=== PATIENT | female | born 1965 | race Caucasian/White ===

== ENCOUNTER 2024-08-02 08:50 | Outpatient (CLI) | payer OTHER, SELFPAY ==
--- NOTE | ~2024-08-02 | MM_ITS ---
EXAMINATION: MM screening aisha BI w guicho HISTORY: Screening TECHNIQUE: Craniocaudal and mediolateral oblique 3-D tomosynthesis images were obtained and synthetic 2-D images were generated. CAD analysis was submitted and interpreted. COMPARISON: No prior mammogram is available for comparison at this institution. BREAST PARENCHYMAL COMPOSITION: Not dense: There are scattered areas of fibroglandular density. FINDINGS: There is a focal asymmetry laterally in the right breast, middle third, best seen on CC vie w. There is no evidence for malignancy in the left breast. IMPRESSION: 1. Focal right breast asymmetry laterally. 2. Additional mammographic views and possible breast ultrasound are recommended. BI-RADS Category 0: Incomplete: Needs additional imaging evaluation. Reviewed, dictated and finalized at location B. [employer] IMPRESSION: 1. Focal right breast asymmetry laterally. 2. Additional mammographic views and possible breast ultrasound are recommended . BI-RADS Category 0: Incomplete: Needs additional imaging evaluation.
== END 2024-08-02 08:51 | disposition home or self-care (01) ==
PROVIDERS: PCP Hospitalist; Visit Provider Obstetrics & Gynecology
DX: R92.2 Inconclusive mammogram (principal)
CPT/HCPCS: 77063; 77067

== ENCOUNTER 2025-05-21 01:03 | Day surgery (SDC) | payer OTHER, SELFPAY ==
--- OUTSIDE RECORDS SUMMARY | 2025-05-21 01:06 | XMS_ITS | Encounter Summary ---
Author Organization [facility] Address [address] [facility] [place] [address] Phone Care Team Providers Care Distillery Supervisor Name Role Phone Shayan Shaikh MD Primary Care Provider [phone] Encounter Details Date Type Department Care Team (Late st Contact Info) Description 06/23/2022 [facility] [address] [place] [address] Mary Jane Wells [place] [address] [place] [address] Social History Tobacco Use Types Packs/Day Years Used Date Smoking Tobacco: Never Assessed Comments No Sex and Gender Information Value Date Recorded Sex Assigned at Not on file Legal Sex Female 12:15 AM CDT Gender Identity Not on file Sexual Orientation Not on file COVID-19 Exposure Response Date Recorded In the last 10 days, have yo u been in contact with someone who was confirmed or suspected to have Coronavirus/COVID-19? No / Unsure 06/14/2022 3:27 PM [employer]INEER documented as of this encounter Plan of Treatment Not on file documented as of this encounter Visit Diagnoses Not on filedocumented in this encounter Care Teams Distillery Supervisor Relationship Specialty Start Date End Date Shayan Shaikh MD PCP - General Internal Medicine 06/27/15 documented as of this encounter
--- OUTSIDE RECORDS SUMMARY | 2025-05-21 01:06 | XMS_ITS | Clinical Summary ---
Author Organization [facility] Address [address] [place] [address] Care Team Providers Care Rope Twisting Machine Operator Name Role Phone Reanna Schmitz MD Unavailable [phone] Reagan Thurston MD Primary Care Provider [phone] Allergies Active Allergy Reactions Criticality Noted Date Comments Codeine Nausea only Low Meperidine Flushing (skin) Low Medications cholecalciferol (VITAMIN D-3) 2,000 unit tablet Take 1 tablet (2,000 Units total) by mouth daily. 03/15/20 17 Active mv-min/folic/vi t K/lycop/coQ10 (DAILY MULTIVITAMIN ORAL) Take by mouth Active Lactobac no.41/Bifidobac t no.7 (PROBIOTIC-10 ORAL) Take by mouth Active cranberry 400 mg capsule Take by mouth Activ e albuterol HFA (ProAir HFA) 90 mcg/actuation inhaler Inhale 2 puffs every 6 (six) hours as needed for wheezing 18 g 11 08/02/19 23 Active azelastine (ASTELIN) 137 mcg (0.1 %) nasal spray Administer 1 spray into each nostril 2 (two) times a day Use in each nostril as directed 30 mL 3 09/19/19 25 Active lansoprazole (PREVACID) 30 mg capsule TAKE 1 CAPSULE BY MOUTH EVERY DAY BEFORE BREAKFAST 90 capsule 3 11/13/19 25 Active montelukast (SINGULAIR) 10 mg tablet TAKE 1 TABLET BY MOUTH AT NIGHT 90 tablet 3 02/08/20 25 Active levothyroxine (SYNTHROID) 50 mcg tablet TAKE 1 TABLET( 50 MCG TOTAL) BY MOUTH DAILY 90 tablet 3 02/08/20 25 Active lisinopriL (PRINIVIL,ZESTR [place]) 20 mg tablet TAKE 1 TABLET(20 MG) BY MOUTH DAILY 90 tablet 3 05/06/20 25 Active clobetasoL (TEMOVATE) 0.05 % creamIndication s:Insect bite of right upper arm, initial encounter Apply topically 2 (two) times a day 30 g 2 05/10/20 25 Active clobetasoL (TEMOVATE) 0.05 % gel Apply 1 application topically 2 (two) times a day 30 each 3 08/21/19 20 2024 Discontinued(T herapy completed) lisinopriL (PRINIVIL,ZESTR IL) 20 mg tablet Take 1 tablet (20 mg total) by mouth daily 90 tablet 3 05/23/20 24 2024 Discontinued Active Problems Problem Noted Date Diagnosed Date Trigger thumb of left hand 05/04/2024 Dyslipidemia 04/09/2024 Assessment & Plan (04/09/2024 4:43 PM CDT): Elevated total and LDL cholesterol, ASCVD risk is 3.9% Patient expects to begin exercise program on Tuesday Muscle strain 12/05/2021 Assessment & Plan (12/05/2021 9:54 PM CDT): This most likely represents a muscular strain in her upper abdomen. No signs of hernia on examination today. Rest ice and avoid aggravating activities. Anti-inflammatories as needed. Call back if symptoms worsen. History of colon polyps 05/02/2020 Overview (05/02/2020): Added automatically from request for surgery [id number] Anxiety disorder 12/09/2019 Assessment & Plan (09/06/2023 4:04 PM CERTIFIED NURSING ASSISTANT): Stable, well controlled; mostly related to loss of parents; resolving for patient Assessment & Plan (12/09/2019 8:04 PM CDT): Start sertraline 50 mg half tablet daily for 6 days then full tablet daily thereafter. Increase exercise and work on stress reduction techniques. Consider counseling. Call back if she develops any suicidal homicidal ideations. Call back if symptoms do not improve so we can increase the dose. Allergic rhinitis 03/15/2017 Assessment & Plan (09/19/2024 12:40 PM CERTIFIED NURSING ASSISTANT): Currently well controlled; patient plans to restart medications as starting in increased pollen count Continue Singulair 10 mg daily, 2nd generation antihistamine, azelastine nasal spray Assessment & Plan (04/09/2024 4:43 PM CDT): Not well controlled, has been having worsening sinus symptoms, some relief with treatments but continues to have thick mucus and watery eyes; symptoms are worse at night Encouraged continued use of Astelin nasal spray, may combine with Flonase in mornings; continue Singulair 10 mg daily Assessment & Plan (05/25/2021 4:24 PM CDT): Add azelastine to her Zyrtec. Assessment & Plan (06/02/2019 7:20 AM CERTIFIED NURSING ASSISTANT): Continue Singulair. Add Flonase as needed Assessment & Plan (03/16/2018 3:36 PM CDT): Continue Singulair daily. Try Flonase if needed. Assessment & Plan (01/26/2018 2:11 PM CDT): Stable. Continue Singulair daily Zyrtec use as needed I did recommend that she might benefit from an more at this time. We did discuss Flonase she has no desire to try a nasal spray at this time but certainly to keep in mind if any postnasal drainage is contributing at all to her with bronchospastic cough Tinea pedis 03/15/2017 Vasomotor symptoms due to menopause 03/15/2017 Assessment & Plan (03/16/2018 3:36 PM CDT): Continue hormone replacement as directed by telecine operator and she is aware the risks this poses to her health. Assessment & Plan (03/15/2017 2:53 PM CDT): Continue hormone replacement therapy as directed by her telecine operator and she is aware the risks this poses to her health. Healthcare maintenance 03/15/2017 Assessment & Plan (06/21/2022 5:26 AM CERTIFIED NURSING ASSISTANT): Flu shot each April. Tetanus booster every 10 years. COVID booster recommended. Shingrix completed. Mammogram yearly. Colonoscopy due April 2025. Will see her back in 1 year for physical fasting lab sooner if needed Assessment & Plan (05/25/2021 4:25 PM CDT): Flu shot each April. Tetanus booster every 10 years. Moderna booster recommended. Shingrix completed. Mammogram yearly. Colonoscopy due April 2025. Follow-up the telecine operator for breast exam and pelvic exam as they direct. will see her back in 1 year for physical fasting lab sooner if needed. Assessment & Plan (05/22/2020 4:21 PM CDT): Flu shot each April. Tetanus booster every 10 years. Shingrix completed. Mammogram yearly. Follow-up the telecine operator for breast exam and pelvic exam as they direct. We will see her back in 1 year for physical fasting lab sooner if needed. Assessment & Plan (06/02/2019 7:22 AM CERTIFIED NURSING ASSISTANT): Flu shot each April. Tetanus booster every 10 years. Shingrix completed. Colonoscopy due January 2020. Mammogram yearly. Follow-up the telecine operator for breast exam and pelvic exam as they direct. We will see her back in 1 year for physical and fasting lab sooner if needed. Assessment & Plan (03/16/2018 3:37 PM CDT): Flu shot each April. Tetanus booster every 10 years. Shingrix recommended. Colonoscopy due January 2020 per Gastroenterology recommendations. Mammogram yearly. Follow-up the telecine operator for breast exam and Pap smear is a direct. We will see her back in 1 year for physical and fasting lab sooner if needed Assessment & Plan (03/15/2017 2:56 PM CDT): Flu shot each April. Tetanus booster every 10 years. Prevnar at age 66 followed by a 2nd found Pneumovax 1 year later. Follow-up telecine operator for pelvic exam is a direct. Colonoscopy January 2017 showed hyperplastic polyps and would think 10 year follow-up but report shows 3 year follow-up. She should follow with Dr. Leyva for clarification. Mammogram due July 25, 2017. Normal bone density scan January 2017. Hypertension 02/27/2015 Overview (10/28/2016): HTN Assessment & Plan (09/19/2024 12:40 PM CERTIFIED NURSING ASSISTANT): Stable, well controlled, blood pressure goal; no chest pain or pressure Continue lisinopril 20 mg daily Assessment & Plan (04/09/2024 4:42 PM CDT): Stable, well controlled; patient reports blood pressure at goal Continue lisinopril 10 mg daily Assessment & Plan (09/06/2023 4:04 PM CERTIFIED NURSING ASSISTANT): Stable, well controlled; blood pressure at goal; will continue to monitor as mother developed atrial fibrillation Continue lisinopril 10 mg daily Assessment & Plan (06/21/2022 5:26 AM CERTIFIED NURSING ASSISTANT): Well controlled on the current regimen. Avoidance of salt, proper body weight, and routine exercise recommended. Assessment & Plan (05/25/2021 4:23 PM CDT): Well controlled on the current regimen. Avoidance of salt, proper body weight, and routine exercise recommended. Assessment & Plan (05/22/2020 4:19 PM CDT): Well controlled on the current regimen. Avoidance of salt, proper body weight, and routine exercise recommended. Assessment & Plan (06/02/2019 7:18 AM CERTIFIED NURSING ASSISTANT): Well controlled on the current regimen. Avoidance of salt, proper body weight, and routine exercise recommended. Assessment & Plan (03/16/2018 3:35 PM CDT): Well controlled on the current regimen. Avoidance of salt, proper body weight, and routine exercise recommended. Assessment & Plan (03/15/2017 2:52 PM CDT): Well controlled on the current regimen. Avoidance of salt, proper body weight, and routine exercise recommended. Hypothyroidism 12/08/2013 Overview (10/27/2016): HYPOTHYROIDISM NOS Assessment & Plan (09/19/2024 12:39 PM CERTIFIED NURSING ASSISTANT): Stable, well controlled, TSH at goal Continue levothyroxine 50 mcg daily Assessment & Plan (04/09/2024 4:42 PM CDT): Stable, less well controlled; last TSH within normal limits Continue levothyroxine 50 mcg daily Assessment & Plan (09/06/2023 4:03 PM CERTIFIED NURSING ASSISTANT): Stable, well controlled; TSH at goal; no major changes to energy or weight Continue levothyroxine 50 mcg daily Assessment & Plan (06/21/2022 5:25 AM CERTIFIED NURSING ASSISTANT): Patient is asymptomatic on current dose of levothyroxine and TSH free T4 are normal and we will repeat levels before next visit. Assessment & Plan (05/25/2021 4:23 PM CDT): Patient is asymptomatic on current dose of levothyroxine and TSH free T4 are normal and we will repeat levels before next visit. Assessment & Plan (05/22/2020 4:19 PM CDT): Patient is asymptomatic on current dose of levothyroxine and TSH free T4 are normal and we will repeat levels before next visit. Assessment & Plan (06/02/2019 7:18 AM CERTIFIED NURSING ASSISTANT): Patient is asymptomatic on current dose of levothyroxine and TSH free T4 are normal and we will repeat levels before next visit. Assessment & Plan (03/16/2018 3:35 PM CDT): Patient is asymptomatic on current dose of levothyroxine and TSH free T4 are normal and we will repeat levels before next visit. Assessment & Plan (03/15/2017 2:52 PM CDT): Patient is asymptomatic on current dose of levothyroxine and TSH free T4 are normal and we will repeat levels before next visit. Gastroesophageal reflux disease 12/08/2013 Overview (10/27/2016): ESOPHAGEAL REFLUX Assessment & Plan (09/19/2024 12:39 PM CERTIFIED NURSING ASSISTANT): Stable, well controlled, no major symptoms Continue Prevacid 30 mg daily Assessment & Plan (04/09/2024 4:42 PM CDT): Stable well controlled with current medications, no significant symptoms Continue Prevacid 30 mg daily Assessment & Plan (09/06/2023 4:03 PM CERTIFIED NURSING ASSISTANT): Stable, well controlled, symptoms okay, some worsening with increased weight Limits high acid foods Encouraged continued dietary changes; famotidine p.r.n. Assessment & Plan (06/21/2022 5:26 AM CERTIFIED NURSING ASSISTANT): Well controlled on her lansoprazole Assessment & Plan (05/25/2021 4:23 PM CDT): Well controlled on lansoprazole. Assessment & Plan (05/22/2020 4:19 PM CDT): Continue current PPI and the patient is aware of the long-term risks posed by chronic PPI usage. Calcium supplementation recommended. Assessment & Plan (06/02/2019 7:18 AM CERTIFIED NURSING ASSISTANT): Continue current PPI and the patient is aware of the long-term risks posed by chronic PPI usage. Magnesium level will be checked periodically. Calcium supplementation recommended. Assessment & Plan (03/16/2018 3:35 PM CDT): Continue current PPI and the patient is aware of the long-term risks posed by chronic PPI usage. Magnesium level will be checked periodically. Calcium supplementation recommended. Assessment & Plan (03/15/2017 2:52 PM CDT): Continue current PPI and the patient is aware of the long-term risks posed by chronic PPI usage. Magnesium level will be checked periodically. Calcium supplementation recommended. Asthma 12/08/2013 Overview (10/29/2016): ASTHMA NOS Assessment & Plan (04/09/2024 4:43 PM CDT): Stable, well controlled; no major symptoms, rare use of rescue inhaler Symptoms are worsened fallen winter Continue Breo Ellipta 1 puff daily; albuterol p.r.n. Assessment & Plan (09/06/2023 4:04 PM CERTIFIED NURSING ASSISTANT): Well controlled with current medications, rare use of rescue inhaler; uses Breo Ellipta p.r.n. for rescue, Singulair daily Continue Breo Ellipta 1 puff p.r.n.; Singulair 10 mg nightly Assessment & Plan (06/21/2022 5:26 AM CERTIFIED NURSING ASSISTANT): Well controlled on her Breo. Albuterol as needed. Assessment & Plan (05/25/2021 4:23 PM CDT): Well controlled on Breo. Use albuterol p.r.n. Assessment & Plan (05/22/2020 4:20 PM CDT): Well controlled with Breo and use albuterol p.r.n. Assessment & Plan (06/02/2019 7:19 AM CERTIFIED NURSING ASSISTANT): Restart Breo as needed and use albuterol as needed. Assessment & Plan (03/16/2018 3:36 PM CDT): Call back if she has any problems switching over Breo. If symptoms remain well controlled, can wean off of this and use albuterol only as needed. Assessment & Plan (01/26/2018 2:11 PM CDT): Refilled Alvesco inhaler to use 1 puff b.i.d. rinsing and spitting after each use this is previously worked for her in the past and she is wanting to go back on to the previous corticosteroid for preventative maintenance at this time. Continue use of ProAir p.r.n. and Singulair as previously prescribed follow-up in a month as scheduled Dr. Shaikh, and certainly sooner if indicated Assessment & Plan (03/15/2017 2:55 PM CDT): Well controlled with generic Singulair and albuterol p.r.n. only. Vitamin D deficiency 12/08/2013 Overview (10/29/2016): Vitamin D deficiency Assessment & Plan (06/21/2022 5:25 AM CERTIFIED NURSING ASSISTANT): Continue current supplementation and check level in 1 year. Assessment & Plan (05/25/2021 4:23 PM CDT): Continue current supplementation and check level in 1 year. Assessment & Plan (05/22/2020 4:20 PM CDT): Continue current supplementation and check level in 1 year. Assessment & Plan (06/02/2019 7:18 AM CERTIFIED NURSING ASSISTANT): Continue current supplementation and check level in 1 year. Assessment & Plan (03/16/2018 3:36 PM CDT): Continue current supplementation and check level in 1 year. Assessment & Plan (03/15/2017 2:52 PM CDT): Reduce supplementation to 2000 units daily and check level before next visit. Eczema 12/04/2012 Overview (10/28/2016): Eczema Resolved Problems Problem Noted Date Diagnosed Date Resolved Date Chronic rhinitis 12/08/2013 03/15/2017 Overview (10/28/2016): CHRONIC RHINITIS Encounters Date Type Department Care Team Description 05/10/2025 3:30 PM CDT Office Visit [facility] [place] [address] [place] [address] Cat Pratt, VALERIO Insect bite of right upper arm, initial encounter (Primary Dx) 05/09/2025 Nurse Triage [facility] [address] [address] Reagan Thurston MD from Last 3 Months Immunizations Immunization Administration Dates Next Due Influenza, Quadrivalent, Spl it, Intramuscular 04/25/2016 Influenza, Quadrivalent, Spl it, Preservative Free, Intramuscular 04/19/2023,04/23/2022,05/01/2021,04/21,05/17/2019,05/01/2018,05/01/2017 Influenza, Trivalent, IM (MDV) 4,04/24/2013,04/14/2012,03/25 Influenza, Trivalent, Preser vative Free, Intramuscular 04/18/2024 Influenza, Trivalent, Split, Preservative Free, Intradermal 04/26/2015 Influenza, Unspecified 05/17/2019(Deferred: Otilia ent Refused) Moderna SARS-CoV-2 Monovalen t Vaccination (12+ YRS) 05/29/2021 Pneumococcal Conjugate PCV 13 04/12/2018 Pneumococcal Polysaccharide PPV23 04/30/2013 Td, adsorbed 11/23/2007 Tdap 05/17/2019 ZOSTER Recombinant 12/22/2018,10/04/2018 Surgical History Surgery Date Site/Laterality Comments CHOLECYSTECTOMY 07/25/2002 - 07/24/2003 LASIK 07/25/1999 - 07/24/2000 CERVICAL BIOPSY W/ LOOP ELECTRODE EXCISION 07/25/2003 - 07/24/2004 cervical dysplasia GUM SURGERY 07/25/2011 - 07/24/2012 gum tissue graft ENDOMETRIAL ABLATION W/ NOVASURE 07/25/2011 - 07/24/2012 LAPAROSCOPIC SALPINGOOPHERECTOMY 07/25/2012 - 07/24/2013 Right ovarian teratoma/mucinous cystadenoma SINUS SURGERY 07/25/2003 - 07/24/2004 TRIGGER FINGER RELEASE 07/25/2013 - 07/24/2014 Right COLONOSCOPY last screening 2017, high risk colon cancer TRIGGER FINGER RELEASE 07/25/2023 - 07/24/2024 Left Medical History Medical History Date Comments Eczema Hypothyroidism Seasonal allergies Asthma Abnormal Pap smear of cervix 2003 cer vical dysplasia GERD (gastroesophageal reflux disease) Prehypertension Arthritis 2007 Trigger thumb left Family History Medical History Relation Name Comments Asthma Brother Angel Breast cancer Cousin 1 2 maternal cou sins Stomach cancer Cousin 2 Arthritis Father Kimo Cancer Father Kimo Coronary artery disease Father Kimo Diabetes Father Kimo Diabetes type II Father Kimo Hypertension Father Kimo Hypertension Maternal Grandfather Alloys Hypertension Maternal Grandmother Sophie Osteoporosis Maternal Grandmother Sophie Anemia Mother July Arthritis Mother July Asthma Mother July Atrial fibrillation Mother July Cancer Mother July Hypertension Mother July Rashes / Skin problems Mother July Pancreatic cancer Mother's Brother COD Osteoporosis Other MGA Hypertension Paternal Grandfather Yrn Hypertension Paternal Grandmother Mallory Asthma Sister [place] Relation Name Status Comments Brother Angel Cousin 1 Cousin 2 Father Kimo Maternal Grandfather Alloys Maternal Grandmother Sophie Mother July Mother's Brother Other Paternal Grandfather Yrn Paternal Grandmother Mallory Sister [place] Social History Tobacco Use Types Packs/Day Years Used Date Smoking Tobacco: Never Smokeless Tobacco: Never Tobacco Cessation:Counseling Given: Not Answered Alcohol Use Standard Drinks/Week Comments Yes 0 (1 standard drink = 0.6 oz pur e alcohol) Less than 1 per month AUDIT-C Answer Date Recorded Frequency of Alcohol Consumption Not on file 05/14/2024 Q2: How many drinks containi ng alcohol do you have on a typical day when you are drinking? Patient does not drink Frequency of Binge Drinking Not on file 04/25 PHQ-2 Answer Date Recorded PHQ-2 Total Score (If total score is 3 or more points, staff should administer the PHQ-9) 0 09/19/2024 Personal Safety Answer Date Recorded Have you ever been in or are you currently in a harmful physical or emotional relationship or is someone making you feel afraid or unsafe? Denies 05/21/2024 Comments No Sex and Gender Information Value Date Recorded Sex Assigned at Not on file Legal Sex Female 7:09 PM CERTIFIED NURSING ASSISTANT Gender Identity Female 04/17/2019 6:24 AM CDT Sexual Orientation Straight 04/17/2019 6: 24 AM CDT Occupation Industry Job Start Date Job End Date Retired Not on file Not on file Not on file Obstetrics History Para Term AB IAB SAB Ectopic Multiple Livin g Live Births 0 0 0 0 0 0 0 0 0 0 0 Last Filed Vital Signs Vital Sign Reading Time Taken Comments Blood Pressure 134/74 05/10/2025 3:28 PM CDT Pulse 72 05/10/2025 3:28 PM CDT Temperature 36.2 C (97.2 F) 05/10/2025 3:28 PM CDT Respiratory Rate 16 05/10/2025 3:28 PM CDT Oxygen Saturation 99% 05/10/2025 3:28 PM CDT Inhaled Oxygen Concentration - - Weight 81.6 kg (180 lb) 05/10/2025 3:28 PM CDT Height 160 cm (5' 3) 05/10/2025 3:28 PM CDT Body Mass Index 31.89 05/10/2025 3:28 PM CDT Plan of Treatment Health Maintenance Due Date Last Done Comments Hepatitis C Screening 1965 Hepatitis B Screening 1984 Pneumococcal vaccine <65 (3 of 3 - PCV20 or PCV21) 04/12/2023 04/12/2018, 04/30/2013 Influenza Vaccine (#1) 2025 , 04/19/2023, 04/23/2022, Additional history exists Colon Cancer Screening-Colonoscopy 05/12/2025 05/12/2020, 02/07/2017, 02/07/2017 Cervical Cancer Screening 05/23/20252023, 05/23/2024, 04/22/2021, Additional history exists Regular Well Visit/Exam 18-64 05/23/2025, 04/29/2023, 05/27/2022, Additional history exists Breast Cancer Screening-Mammogram 08/29/2025 08/29/2024, 06/14/2022, 06/14/2022, Additional history exists Osteoporosis Screening-Bone Density Scan 09/06/2025 09/06/2023, 02/04/2017, 02/04/2017 Depression Screening 09/19/2025 09/19/2024, 09/01/2023, 05/27/2022, Additional history exists DTaP/Tdap/Td Vaccine (2 - Td or Tdap) 05/17/2029 05/17/2019, 11/23/2007 Zoster Vaccine Completed 12/22/2018, 10/04/2018 Colon Cancer Screening-CT Colonography Discontinued 05/12/2020, 02/07/2017, 02/07/2017 Colon Cancer Screening-DNA Stool Discontinued 05/12/2020, 02/07/2017, 02/07/2017 Colon Cancer Screening-FIT Discontinued 05/12, 02/07/2017, 02/07/2017 Colon Cancer Screening-Sigmoidoscopy Discontinued 05/12/2020, 02/07/2017, 02/07/2017 Covid-19 Vaccine Completed 03/30/2024, , 04/09/2022, Additional history exists Procedures Procedure Name Priority Date/Time Associated Diagnosis Comments SCREENING MAMMOGRAM Schedule Routine, Read Routine (OP Routine) 08/29/2024 7:51 AM CERTIFIED NURSING ASSISTANT HIGH RISK HPV DNA DETECTION WITH GENOTYPING Routine 05/23/2024 9:24 AM CDT Screening for malignant neoplasm of the cervix DEXA AXIAL SKELETON BONE DENSITY 1 OR MORE SITES Schedule Routine, Read Routine (OP Routine) 09/06/2023 Post-menopausal COLONOSCOPY 05/12/2020 11:12 AM CDT from Last 3 Months or Most Recently Relevant to Health Maintenance Results * Screening Mammogram (08/29/2024 7:51 AM CERTIFIED NURSING ASSISTANT) Anatomical Region Laterality Modality Breast N/A Mammography us Historical Provider MD MCDANIELS MAMMO PROCEDURES Joanna l Result * High Risk HPV DNA Detection with Genotyping (Molecular component) (05/23/2024 9:24 AM CDT) HPV HR 16 Not Detected Not Detected BJ Comment:Testing performed by : [facility], [address] [place] [address] HPV HR 18 Not Detected Not Detected BORIS JACOBS Comment:Testing performed by : [facility], [address] [place]., [address] HPV HR Non 16/18 Not Detected Not Detected BORIS Comment: Interpretive Data Nucleic acid amplification for detection of high-risk Human Papilloma virus (HPV) is performed by the [employer] 6800 HPV test. This assay specifically detects HPV-16 and HPV-18 genotypes. The following HPV genotypes are detected as high-risk HPV: HPV-31, 33, 35, ,39, 45, 51, 52, 56, 58, 59, 66, and 68. This assay has been approved by the [place] Food and Drug Administration for detection of HPV in cervical specimens collected by a physician using an endocervical brush/spatula or cervical broom and placed in the ThinPrep Pap Test PreservCyt collection containers. The performance characteristics of this test have been verified by the [facility] laboratory. Correlate with separately reported cytology results, as applicable. Interpretive data last revised 23 Testing performed by: [facility], [address] [place] [address]., [id number] Endocervical 05/23/2024 9:24 AM CDT 05/24/2024 12:45 PM CDT Narrative BORIS - 05/24/2024 8:02 PM CDT Clinical history and diagnosis->DX Z12.4 Testing type->Screening Last menstrual period (date if known)->N/A Menstrual status->Postmenopausal Previous negative PAP?->Yes Mary Jane Wells MD LAB BODY FLUIDS AND S TOOLS ORDERABLES Final Result BORIS [id number] Department [place] [address] [facility] * Dexa Axial Skeleton Bone Density 1 or 2 Site (09/06/2023) Anatomical Region Laterality Modality Body N/A Radiographic Heather ging Reagan Thurston MD IMG DXA PROCEDURES Final Result * COLONOSCOPY (05/12/2020 11:12 AM CDT) Anatomical Region Laterality Modality Other Narrative Procedure Note Olagbekaylyn, Olayiwola C., MD - 05/12/2020 11:12 AM CDT [facility] Patient Name: Hope Acuna Procedure Date: 05/12/2020 11:12AM Date of : 1965 Admit Type: Outpatient Age: 54 Gender: Female Note Status: Finalized Attending MD: Reinier Tomas M.D. Procedure Date: 05/12/2020 Procedure: Colonoscopy Indications: High risk colon cancer surveillance: Personalhistory of colonic polyps, Last colonoscopy 3 years ago Providers: Reinier Tomas M.D., Kala Babb CRNA (Anesthesia Staff), Sury Cannon RN Referring MD: Shayan Shaikh M.D. Medicines: Monitored Anesthesia Care Complications: No immediate complications. Estimated Blood Loss: Estimated blood loss: none. Procedure: Pre-Anesthesia Assessment: - Prior to the procedure, a History and Physical was performed, and patient medications and allergieswere reviewed. The patient is competent. The risks and benefits of the procedure and the sedation optionsand risks were discussed with the patient. All questions were answered and informed consent was obtained. Patient identification and proposed procedure were verified by the physician, the nurse and the janitorial tech in the procedure room. Mental Status Examination: alert and oriented. Airway Examination: normal oropharyngeal airway and neck mobility. Respiratory Examination: clear to auscultation. CV Examination: normal. Prophylactic Antibiotics: The patient does not require prophylactic antibiotics. Prior Anticoagulants: The patient has taken noprevious anticoagulant or antiplatelet agents. ASA Grade Assessment: II - A patient with mild systemicdisease. After reviewing the risks and benefits, the patientwas deemed in satisfactory condition to undergo the procedure. The anesthesia plan was to use monitored anesthesia care (MAC). Immediately prior to administration of medications, the patient was re-assessed for adequacy to receive sedatives. The heart rate, respiratory rate, oxygen saturations,blood pressure, adequacy of pulmonary ventilation, and response to care were monitored throughout the procedure. The physical status of the patient was re-assessed after the procedure. - The risks and benefits of the procedure and the sedation options and risks were discussed with the patient. All questions were answered and informed consent was obtained. After I obtained informed consent, the scope waspassed under direct vision. Throughout the procedure, the patient's blood pressure, pulse, and oxygensaturations were monitored continuously. The scope was passedunder direct vision. The Colonoscope was introducedthrough the anus and advanced to the the cecum, identifiedby appendiceal orifice and ileocecal valve. The colonoscopy was performed without difficulty. The patient tolerated the procedure well. The quality of the bowel preparation was adequate. Bowel prep was administered using a split dose. The bowelpreparation used was SUPREP. Bowel prep was administered using a split dose. Findings: Multiple small-mouthed diverticula were found in the entire colon. The exam was otherwise without abnormality on direct and retroflexion views. Impression: - Diverticulosis in the entire examined colon. - The examination was otherwise normal on direct and retroflexion views. - No specimens collected. - Colonic polyps were not seen. Recommendation: - High fiber diet. - Repeat colonoscopy in 5 years for surveillance. Procedure Code(s): --- Professional --- 79725, Colonoscopy, flexible; diagnostic, including collection of specimen(s) by brushing or washing,when performed (separate procedure) Diagnosis Code(s): --- Professional --- Z86.010, Personal history of colonic polyps K57.30, Diverticulosis of large intestine without perforation or abscess without bleeding CPT copyright 2017 [employer]. All rights reserved. The codes documented in this report are preliminary and upon guest relations agent reviewmay be revised to meet current compliance requirements. Electronically signed by Reinier Tomas M.D. Reinier Tomas M.D. 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
--- OUTSIDE RECORDS SUMMARY | 2025-05-21 01:06 | XMS_ITS | Clinical Summary ---
Author Organization [facility] [address] [facility] [place] [address] Phone Care Team Providers Care Brusher Warp Name Role Phone Shayan Shaikh MD Primary Care Provider [phone] Family History Medical History Relation Name Comments Breast Cancer Other Relation Name Status Comments Other Social History Tobacco Use Types Packs/Day Years Used Date Smoking Tobacco: Never Assessed Comments No Sex and Gender Information Value Date Recorded Sex Assigned at Not on file Legal Sex Female 12:15 AM CDT Gender Identity Not on file Sexual Orientation Not on file Last Filed Vital Signs Vital Sign Reading Time Taken Comments Blood Pressure - - Pulse - - Temperature - - Respiratory Rate - - Oxygen Saturation - - Inhaled Oxygen Concentration - - Weight 80.7 kg (178 lb) 07/12/2015 8:07 AM WATER HAULER Height 162.6 cm (5' 4) 07/12/2015 8:07 AM WATER HAULER Body Mass Index 30.55 07/12/2015 8:07 AM WATER HAULER Plan of Treatment Health Maintenance Due Date Last Done Comments Hepatitis C Virus (HCV) Screening 1966 Hepatitis B Immunization (1 of 3 - 19+ 3-dose series) 1985 Pap Smear 1987 Cervical Cancer Screening (CCS) 1996 HPV/Cotest 1996 Cologuard 2011 Immunochemical Fecal Occult Blood 2011 Pneumococcal Immunization (50+ years) (3 of 3 - PCV20 or PCV21) 04/12/2023 04/12/2018, 04/30/2013 Influenza Immunization (#1) 03/25/202503/27, 05/01/2021, 04/21/2020, Additional history exists SARS-COV-2 Immunization ( season) 2025 04/09/2022, 10/25/2021, 05/29/2021, Additional history exists Colonoscopy 05/12/2030 05/12/2020 Colorectal Cancer Screening 05/12/2030 Respiratory Syncytial Virus (RSV) Immunization (Adult) (1 - 1-dose 75+ series) 2041 Pneumococcal Immunization Combined Discontinued 04/12/2018, 04/30/2013 Zoster Immunization Completed 12/22/2018, 9 DTaP/Tdap/Td Immunization Discontinued 05/17/2019, 07/2007 TdaP Immunization Completed 05/17/2019 Mammogram Discontinued 06/14/2022, 04/25, 05/10/2020, Additional history exists Human Papillomavirus (HPV) Immunization Aged Out No longer eligible based on patient's age to complete this topic Meningococcal Immunization (ACWY) Aged Out No longer eligible based on patient's age to complete this topic Rotavirus Immunization Aged Out No lo nger eligible based on patient's age to complete this topic Procedures Procedure Name Priority Date/Time Associated Diagnosis Comments CHICHO SCREENING BILATERAL DIGITAL W CAD W HENNY Routine 06/14/2022 4:05 PM WATER HAULER Encounter for screening mammogram for malignant neoplasm of breast from Last 3 Months or Most Recently Relevant to Health Maintenance Results * CHICHO SCREENING BILATERAL DIGITAL W CAD W HENNY (06/14/2022 4:05 PM WATER HAULER) Anatomical Region Laterality Modality breast Bilateral Mammography 06/14/2022 3:46 PM WATER HAULER Narrative 06/15/2022 11:10 AM WATER HAULER - CHICHO SCREENING BILATERAL DIGITAL W CAD W HENNY BILATERAL DIGITAL SCREENING MAMMOGRAM 3D/2D WITH CAD WITH MEDIOLATERAL OBLIQUE CRANIOCAUDAL: 06/14/2022 The study was acquired using digital technology and interpreted from soft copy. Current study was also evaluated with ICAD version 7.2. 2D digital mammographic views, as well as 3D digital tomosynthesis were performed in the CC and MLO projections. CLINICAL: Routine screening. Patient has no complaints. No personal history of cancer. Maternal cousin had breast cancer. COMPARISONS: Comparison is made to exams dated: 05/16/2021, 05/30/2020, 05/10/2020, and 04/28/2019 [facility]. BREAST TISSUE:The tissue of both breasts is heterogeneously dense. This may lower the sensitivity of mammography. FINDINGS: There is an asymmetry in the right breast anterior depth central to the nipple seen on the mediolateral oblique view only. No other significant masses, calcifications, or other findings are seen in either breast. IMPRESSION: BI-RAD 0 ADDITIONAL IMAGING EVALUATION NEEDED The asymmetry in the right breast is indeterminate. Additional views with possible ultrasound are recommended. An immediate follow-up is recommended. A letter will be sent to the patient with these results. Electronically signed by: Niki wilson/katelynn:06/14/2022 17:17:09 Character Actor(s): RT Lexy(R)(M), [facility] letter sent: Additional Imaging Reading location: [facility] BI-RADS: 0 Additional Imaging Evaluation Needed Procedure Note Niki Marquez MD - 06/15/2022 - CHICHO SCREENING BILATERAL DIGITAL W CAD W HENNY BILATERAL DIGITAL SCREENING MAMMOGRAM 3D/2D WITH CAD WITH MEDIOLATERAL OBLIQUE CRANIOCAUDAL: 06/14/2022 The study was acquired using digital technology and interpreted from soft copy. Current study was also evaluated with ICAD version 7.2. 2D digital mammographic views, as well as 3D digital tomosynthesis were performed in the CC and MLO projections. CLINICAL: Routine screening. Patient has no complaints. No personal history of cancer. Maternal cousin had breast cancer. COMPARISONS: Comparison is made to exams dated: 05/16/2021, 05/30/2020, 05/10/2020, and 04/28/2019 [facility]. BREAST TISSUE:The tissue of both breasts is heterogeneously dense. This may lower the sensitivity of mammography. FINDINGS: There is an asymmetry in the right breast anterior depth central to the nipple seen on the mediolateral oblique view only. No other significant masses, calcifications, or other findings are seen in either breast. IMPRESSION: BI-RAD 0 ADDITIONAL IMAGING EVALUATION NEEDED The asymmetry in the right breast is indeterminate. Additional views with possible ultrasound are recommended. An immediate follow-up is recommended. A letter will be sent to the patient with these results. Electronically signed by: Niki Marquez M.D. ab/penrad:06/14/2022 17:17:09 Character Actor(s): RT Lexy(R)(M), [facility] letter sent: Additional Imaging Reading location: [facility] BI-RADS: 0 Additional Imaging Evaluation Needed us Mary Jane Wells MD IMG MAMMO ORDERABLES Final Result from Last 3 Months or Most Recently Relevant to Health Maintenance Insurance [place], [place] [id number] [place] [address] Care Teams Brusher Warp Relationship Specialty Start Date End Date Shayan Shaikh MD PCP - General Internal Medicine 06/27/15
[2025-05-21 06:16] VITALS: BP 144/80; PULSE 66; RESP 18; TEMP 36.1; O2SAT 98
[2025-05-21] MEDS: LACTATED RINGERS 1,000 ML 150 ML IV CONT (06:28)
--- NOTE | 2025-05-21 07:11 | WPDANESEPPF ---
Anes - Initial Pre Proc Eval Procedure: Operation Date: 05/21/25 07:30 Proposed Procedures p Screening Colonoscopy - Samir More DO Date/Time: 05/21/25 07:11 Surgeon: Samir More DO Pre Op Diagnosis: Screening for malignant neoplasm of colon Patient Data Age: 59 Gender: F Height: 1.6 m Weight: 79.4 kg Last Vital Signs Temp 97 F L 05/21/25 06:16 Pulse 66 05/21/25 06:16 Resp 18 05/21/25 06:16 BP 144/80 H 05/21/25 06:16 Pulse Ox 98 05/21/25 06:16 O2 Del Method Room Air 05/21/25 06:16 Allergies Allergy/AdvReac Type Severity Reaction Status Date / Time DEMEROL Allergy Unknown Flushing Uncoded 05/21/25 06:15 Home Medications ?Medication ?Instructions ?Recorded ?Confirmed ?Type azelastine 137 mcg (0.1 %) nasal 1 spray intranasal Q12H 05/10/25 05/21/25 History spray lansoprazole 30 mg capsule,delayed 30 mg PO DAILY 05/10/25 05/21/25 History release levothyroxine 50 mcg tablet 50 mcg PO DAILY 05/10/25 05/21/25 History lisinopril 20 mg tablet 20 mg PO DAILY 05/10/25 05/21/25 History montelukast 10 mg tablet 10 mg PO DAILY 05/10/25 05/21/25 History Patient hx anesthesia problems: none Family hx anesthesia problems: none Results Review: All pre-operative results and documents have been reviewed as part of the pre-operative evaluation. [facility] Social History Social History Smoking status: Never smoker Alcohol intake: never Substance use: never Substance use type: does not use Living arrangements: with family Spiritual care concerns: No Anes - Eval Final PreProcedure Day of Procedure 05/21/25 07:11 Patient weight: obese Lungs: normal air movement Airway: Mallampati scale class II Neurological: alert and oriented Last oral intake: >/= 8 hours ASA classification: II Emergent: no Anesthetic plan: proceed Anesthesia type and monitoring: general GIVS and standard monitoring Results Review: All pre-operative results and documents have been reviewed as part of the pre-operative evaluation. HTN, hypothyroidism, active swimmer 5 x weekly, no cp or sob. Informed Consent: The patient's anesthetic plan and its attendant risks and benefits were discussed with the patient/family/POA. Questions were solicited and answers provided to the satisfaction of the patient/family/POA.
--- NOTE | 2025-05-21 07:22 | PM.IMHP ---
H&P: HPI History of Present Illness Date/Time: 05/21/25 07:22 Chief Complaint: History of colon polyps, family history of colon cancer Narrative: This is a 59-year-old woman who presents for colonoscopy. Her last colonoscopy was 5 years ago. She denies any hematochezia or melena. Her mother did have history of colon cancer. Review of Systems Review of Systems: All systems reviewed & are unremarkable except as noted in HPI and below Constitutional: Constitutional: Denies chills, Denies fever(s), Denies headache(s) and Denies weight loss Eyes: Eyes: Denies change in vision ENT: Denies dizziness, Denies headache(s), Denies neck mass and Denies throat swelling Cardiovascular: Cardiovascular: Denies chest pain, Denies lightheadedness and Denies dyspnea Respiratory: Respiratory: Denies cough, Denies dyspnea and Denies wheezing Gastrointestinal: Gastrointestinal: Denies abdominal pain, Denies change in bowel habits, Denies nausea and Denies vomiting Genitourinary: Genitourinary: Denies hematuria and Denies dysuria Musculoskeletal: Musculoskeletal: Reports as per HPI Integumentary/Breasts: Skin/Breast: Reports as per HPI Neurologic: Denies dizziness and Denies headache(s) Allergic/Immunologic: Allergic/Immunologic: Denies throat swelling and Denies wheezing PMFSH Social History Social History Smoking status: Never smoker Alcohol intake: never Substance use: never Substance use type: does not use Living arrangements: with family Spiritual care concerns: No Meds Home Medications and Allergies Home Medications ?Medication ?Instructions ?Recorded ?Confirmed ?Type azelastine 137 mcg (0.1 %) nasal 1 spray intranasal Q12H 05/10/25 05/21/25 History spray lansoprazole 30 mg capsule,delayed 30 mg PO DAILY 05/10/25 05/21/25 History release levothyroxine 50 mcg tablet 50 mcg PO DAILY 05/10/25 05/21/25 History lisinopril 20 mg tablet 20 mg PO DAILY 05/10/25 05/21/25 History montelukast 10 mg tablet 10 mg PO DAILY 05/10/25 05/21/25 History Allergies Allergy/AdvReac Type Severity Reaction Status Date / Time DEMEROL Allergy Unknown Flushing Uncoded 05/21/25 06:15 Vital Signs Vital Signs - 24 hr 05/21/25 06:16 Temperature 97 F L Pulse Rate 66 Respiratory Rate 18 Blood Pressure 144/80 H Pulse Oximetry 98 Oxygen Delivery Room Air Exam Const: General: no acute distress and alert Orientation/consciousness: patient oriented x3 HENMT: Head: normocephalic and atraumatic Ears: hearing grossly normal bilaterally Face/Nose/Sinus: Normal nares present Mouth: Yes Normal oral and palatal mucosa present Eyes: Periorbital: periorbital findings normal Sclera: sclerae normal EOM: EOMs intact bilaterally Neck: Neck: normal visual inspection, no lymphadenopathy and trachea midline Chest: Chest palpation & inspection: normal inspection of the chest Resp: Effort & Inspection: normal respiratory effort Auscultation: clear to auscultation bilaterally Cardio: Jugular venous distension: no JVD Rate: regular rate Rhythm: regular rhythm Heart sounds: S1 normal heart sound present and S2 normal heart sound present Peripheral pulses: Peripheral pulses 2+ throughout GI: Inspection: normal to inspection GI Palp: Yes Soft to palpation, No Tenderness to palpation present (GI), No Guarding due to palpation present (GI) and No Rebound tenderness present Percussion: Yes normal to percussion Auscultation: normal bowel sounds : General: Yes no CVA tenderness Back/Spine/Pelvis: Back: no CVA tenderness Neuro: General: patient oriented x3, no focal motor deficits and CN's II-XI intact bilaterally Cognition (Neuro): normal cognition Speech: normal speech Motor exam (neuro): 5/5 motor strength present throughout Extrem: General: capillary refill normal and no clubbing, cyanosis or edema Assessment and Plan Assessment and plan (1) Family history of colon cancer: Code(s): Z80.0 - Family history of malignant neoplasm of digestive organs Status: Acute Assessment and Plan: I have recommended colonoscopy. I have discussed the procedure, risks, benefits, and alternatives. Questions were answered. Patient is agreeable to proceed. (2) History of colon polyps: Code(s): Z86.0100 - Personal history of colon polyps, unspecified Status: Acute
[2025-05-21 07:59] VITALS: BP 147/77; PULSE 77; RESP 14; O2SAT 99
[2025-05-21 08:09] VITALS: BP 127/71; PULSE 69; RESP 19; O2SAT 100
[2025-05-21 08:19] VITALS: BP 151/87; PULSE 67; RESP 18; O2SAT 100
== END 2025-05-21 08:29 | disposition home or self-care (01) ==
PROVIDERS: PCP Hospitalist; Visit Provider Surgery
PROC: 0DJD8ZZ Inspection of Lower Intestinal Tract, Via Natural or Artificial Opening Endoscopic (ICD-10-PCS; CPT 45378; principal; 2025-05-21 07:30)
DX: Z12.11 Encounter for screening for malignant neoplasm of colon (principal); K64.8 Other hemorrhoids; Z86.0100 Personal history of colon polyps, unspecified; Z80.0 Family history of malignant neoplasm of digestive organs
CPT/HCPCS: 45378; J2704; J7120